=== PATIENT | male | born 1985 | race Two or more races ===

== ENCOUNTER 2020-10-26 09:02 | Emergency (ER) | payer MEDICAID, OTHER ==
[~2020-10-26] VITALS: Ht 165.1 cm; Wt 79.4 kg
[2020-10-26 11:45] VITALS: BP 147/99
== END 2020-10-26 12:22 | disposition home or self-care (01) ==
LOC: ER 09:02 → EDBD 09:02 → ER 12:22
DX: J18.8 Other pneumonia, unspecified organism (principal); Z20.828 Contact with and (suspected) exposure to other viral communicable diseases
CPT/HCPCS: 36415; 71045; 87426; 87804; 99284; C9803; U0003